=== PATIENT | female | born 1945 | race Caucasian/White ===

== ENCOUNTER → 2016-09-12 | Day surgery (SDC) | payer OTHER ==
[~2016-09-12] MED LIST: IOHEXOL 180 MG/ML 20 ML VIAL (for RAD DIAG) ONE; LACTATED RINGER'S 1000 ML INJ 1,000 ML ONE; LIDOCAINE HCL 1% PF 30 ML VIAL ONE; PROPOFOL 100 MG/10 ML INJ IV ONE; TRIAMCINOLONE ACETONIDE 40 MG/ML VIAL ONE
--- NOTE | 2016-09-12 15:58 | TN ---
cc: SIRISHA MCBRIDE DATE OF SURGERY: 09/12/2016. PREOPERATIVE DIAGNOSIS: 1. Osteoarthritis of the right hip. 2. Arthrofibrosis of the right hip. POSTOPERATIVE DIAGNOSIS: 1. Osteoarthritis of the right hip. 2. Arthrofibrosis of the right hip. OPERATIVE PROCEDURE PERFORMED: 1. Manipulation right hip under anesthesia. 2. Injection of Depo-Medrol right hip, 40 milligrams. 3. Arthrogram of the right hip. 4. Use of fluoroscopy for percutaneous needle guidance. 5. Intraoperative x-ray right hip, two-views. SURGEON: Sirisha Mcbride MD. ANESTHESIA: TIVA. ESTIMATED BLOOD LOSS: Minimal. INDICATIONS FOR THE PROCEDURE: This patient is a 71-year-old female. The patient has a history of increasing pain in the region of her right hip. She also has some left-sided hip pain. The patient has fallen and landed on the right side on concrete. She is having weakness and instability. She has some buckling of her legs. Investigative studies show evidence of severe arthritis of the right hip with significant sclerosis of the bony surfaces and flattening of the femoral head. She is struggling with hip pain and now presents for an intra-articular injection of the right hip. DESCRIPTION OF THE PROCEDURE IN DETAIL: The patient was brought to the operating room and anesthetized in the supine position. The right leg was evaluated under anesthesia. Range of motion of the right hip was flexion 90, extension, 0, internal rotation 0, external rotation 10, abduction 30. The hip was manipulated under anesthesia. Following manipulation, extension was 0, flexion 100, internal rotation 20, external rotation 30, adduction 20 and abduction 30. The right hip was scrubbed with alcohol followed by Hibiclens followed Chloraprep and draped sterilely. Under fluoroscopy, a 22-gauge spinal needle was advanced down to the anterior aspect of the right hip joint. This was placed into an intra-articular position along the anterior capsule of the hip joint. Contrast was instilled. There were severe erosive changes. There may be a fracture of the acetabulum in the region of the cephalad portion. This is adjacent to an osteophyte. No leak of contrast was noted. We then injected with 40 milligrams Depo-Medrol and 3 cc of 1% lidocaine plain. The hip was run through a second range of motion. Intraoperative x-rays were obtained, which showed no changes. The patient was awakened and taken to the recovery room in satisfactory condition. MD FRANSISCO Oliva/CHRIS /3:43 PM /3:49 PM
== END | disposition home or self-care (01) ==
LOC: ESDC 13:46
PROVIDERS: ATTEND Orthopaedic Surgery Orthopaedic Surgery of the Spine
DX: M24.651 Ankylosis, right hip (principal); M16.11 Unilateral primary osteoarthritis, right hip
CPT/HCPCS: 01200; 27275; 73502; J3010; J3301; J7120; Q9965

== ENCOUNTER → 2016-12-26 | Day surgery (SDC) | payer OTHER ==
[~2016-12-26] MED LIST changes: +MIDAZOLAM HCL 2 MG/2 ML VIAL ONE; +ONDANSETRON HCL 4 MG/2 ML VIAL IV PUSH ONE
--- NOTE | 2016-12-26 13:13 | TN ---
cc: SIRISHA MCBRIDE DATE OF SURGERY 12/26/2016 PREOPERATIVE DIAGNOSIS 1. Osteoarthritis right hip. 2. Arthrofibrosis right hip. POSTOPERATIVE DIAGNOSIS 1. Osteoarthritis right hip. 2. Arthrofibrosis right hip. PROCEDURE 1. Manipulation right hip under anesthesia. 2. Use of fluoroscopy for percutaneous guidance 3. Arthrogram of the right hip 4. Injection right hip with Kenalog 40 mg 5. X-ray of the right hip, post arthrogram and manipulation, two-views SURGEON Sirisha Mcbride MD ANESTHESIA TIVA ESTIMATED BLOOD LOSS None INDICATION This is a 71-year female with progressive loss of motion of the right hip. She has pain with range of motion and is losing function. She presents with the above procedure. PROCEDURE The patient was brought to the operating room and given limited sedation. The right hip was scrubbed with alcohol, followed by Hibiclens, followed by Chloraprep and draped sterilely. Antibiotics were held. The hip was manipulated. Range of motion with extension zero, flexion 80, internal rotation 15, external rotation 20, abduction 10, adduction 25. After manipulation range of motion was flexion 110, extension 0, internal rotation 20, external rotation 40, adduction 20, abduction 45. A 22-gauge spinal needle was advanced under fluoroscopy to the anterior aspect of the right hip joint. Contrast was instilled. This showed evidence of no leak of contrast. There was complete loss of articular cartilage cephalad. A subchondral cystic change was seen. We then injected with 40 mg of Kenalog and 3 cc of 1% lidocaine plain. The hip was run through a second range of motion. Intraoperative x-rays were obtained. The study showed evidence of no fracture, advanced arthritis and subchondral cystic changes. The patient was awakened and taken to the recovery room in satisfactory condition. MD FRANSISCO Oliva/YONI /1:01 PM /1:05 PM [facility]
== END | disposition home or self-care (01) ==
LOC: ESDC 11:33
PROVIDERS: ATTEND Orthopaedic Surgery Orthopaedic Surgery of the Spine
DX: M16.11 Unilateral primary osteoarthritis, right hip (principal); M24.651 Ankylosis, right hip
CPT/HCPCS: 01200; 27275; 73502; 76000; J2250; J2405; J3301; J7120; Q9965